=== PATIENT | female | born 1990 | race Caucasian/White ===

== ENCOUNTER → 2020-11-19 14:36 | Outpatient (BNVA) | payer OTHER, SELFPAY | PROVIDERS: PCP Chiropractor; Visit Provider Internal Medicine Cardiovascular Disease | DX: Z76.89 Persons encountering health services in other specified circumstances (principal) ==

== ENCOUNTER 2022-02-02 13:25 | Outpatient (REF) | payer OTHER, SELFPAY | END 2022-02-02 13:26 | disposition home or self-care (01) | LOC: HO.LAB 13:25 | PROVIDERS: PCP General Practice; Visit Provider Internal Medicine Cardiovascular Disease | DX: I47.1 Supraventricular tachycardia (principal); R00.0 Tachycardia, unspecified; R09.89 Other specified symptoms and signs involving the circulatory and respiratory systems | CPT/HCPCS: 36415; 93005 ==

== ENCOUNTER → 2022-06-12 07:22 | Outpatient (REF) | payer OTHER, SELFPAY ==
--- NOTE | 2022-06-12 07:25 | CA_ITS ---
Transthoracic Echocardiogram Patient (Last, First, Middle): Tammy Gleason, Gender: Female Date of : 1990 Age: 32 Procedure Date: 06/12/2022 Procedure Type: Transthoracic Echocardiogram Location: OP Height: 172.72 cm Weight: 65.77 kg BSA: 1.78 m2 Heart Rate: bpm BP: 115 / 70 mmHg Electrolysis Investigator: TO Referring MD: Esa De Leon MD Occupational Therapist Rehab Manager: Esa De Leon MD Symptoms: I49.1 - Atrial premature depolarization Study Quality: Good ECG Rhythm: Sinus Conclusions: - Normal study Findings Left Ventricle Normal left ventricular size, thickness, and systolic function. The visually estimated ejection fraction is between 65-70%. Diastolic function is normal for age. Atria Both atria are normal in size. There is no evidence of interatrial shunt. Aortic Valve Normal aortic valve structure and function. There is no aortic valve stenosis. There is no aortic valve regurgitation. Mitral Valve Normal mitral valve structure and function. There is no mitral valve regurgitation. There is no mitral valve stenosis. Pulmonic Valve The pulmonic valve is likely normal. Tricuspid Valve Normal tricuspid valve structure. There is trace tricuspid valve regurgitation. The right ventricular systolic pressure is 31 mmHg. Normal right atrial pressure. There is no evidence of pulmonary hypertension. Great Vessels All visible segments of the aorta are normal in size. The visualized portions of the pulmonary artery and branches are normal. Venous The inferior vena cava is normal in size and collapses greater than 50% with inspiration. Pericardium/Pleural There is no evidence of pericardial effusion. Prior Study Comparison No change compared to prior study dated: 05/04/2018. Measurements 2D Linear Measurements IVSd: 0.94 0.6-0.9/0.6-1.0 cm LVIDd: 4.42 3.9-5.3/4.2-5.9 cm LVIDd Index: 2.48 2.4-3.2/2.2-3.1 cm/m2 LVIDs: 2.80 2.0-3.6 cm LVPWd: 0.73 0.7-1.1 cm LA Diam: 3.00 2.7-3.8/3.0-4.0 cm LAIDs Index: 1.69 1.5-2.3 cm/m2 LV Mass: 145.68 67-162/88-224 g LV Mass Index: 81.84 43-95/49-115 g/m2 LVOT Diam: 2.00 3.0+(-)1.3 cm 2D Systolic Function EF 4C: 62.80 >55% EF 2C: 72.00 >55% EF BiP: 68.10 >55% Mitral Valve MV Pk E: 0.94 MV PK A: 0.64 MV Decel Time: 198.00 E/A: 1.50 E'Lateral: 13.60 E'Medial: 10.60 E/E' Med: 8.80 E/E' Lat: 6.90 PHT: 58.00 MVA PHT: 3.79 Decel Grant: 4.74 Aortic Valve AoV Pk Oral: 1.13 AoV Mn Oral: 0.84 AoV VTI: 0.26 AoV Pk Grad: 5.00 Aov Mn Grad: 3.00 MONISHA Cont.VTI: 2.36 LVOT LVOT Pk Oral: 0.87 LVOT Mn Oral: 0.61 LVOT VTI: 0.20 LVOT Pk Grad: 3.00 LVOT Mn Grad: 2.00 LVOT Diam: 2.00 LVOT Area: 3.14 Diastolic Function MV Pk E: 0.94 MV Pk A: 0.64 E/A: 1.50 E'Medial: 10.60 E/E' Med: 8.80 E' Laterial: 13.60 E/E' Lat: 6.90 Right Ventricle TAPSE (mm): 30.80 TVS' Oral: 15.70 Tricuspid Valve TR Pk Oral: 1.98 TR Pk Grad: 16.00 RA Press: 15.00 RVSP: 31.00 Great Vessels Aorta Sinus of Valsalva: 3.62 2.0-3.[address] Ridge: 3.05 1.7-3.4 cm Ao Asc: 3.30 2.1-3.4 cm Ao Arch: 2.50 Updated in Other Vendor System with Status of Final Esa De Leon MD electronically signed on 06/13/2022 3:54:50 PM with status of Final
== END ==
LOC: HO.CARD 07:22
PROVIDERS: Visit Provider Internal Medicine Cardiovascular Disease
DX: O99.419 Diseases of the circulatory system complicating pregnancy, unspecified trimester (principal); I49.1 Atrial premature depolarization; I47.1 Supraventricular tachycardia; R00.0 Tachycardia, unspecified
CPT/HCPCS: 93306

== ENCOUNTER → 2022-10-05 09:55 | Outpatient (BNVA) | payer OTHER, SELFPAY | PROVIDERS: PCP Nurse Practitioner Acute Care; Visit Provider Internal Medicine Cardiovascular Disease | DX: Z01.810 Encounter for preprocedural cardiovascular examination (principal); I47.1 Supraventricular tachycardia | CPT/HCPCS: 93005 ==

== ENCOUNTER → 2023-08-23 08:32 | Outpatient (REF) | payer OTHER, SELFPAY | LOC: HO.CARD 08:32 | PROVIDERS: Visit Provider Internal Medicine Cardiovascular Disease | DX: I49.1 Atrial premature depolarization (principal); I47.1 Supraventricular tachycardia | CPT/HCPCS: 93246 ==

== ENCOUNTER 2023-10-11 09:11 | Outpatient (AMB) | payer OTHER, SELFPAY ==
--- NOTE | 2023-10-11 09:41 | MHC.OFFVIS ---
Intake Vital Signs 10/11/23 09:42 10/11/23 09:54 10/11/23 09:56 Height 5 ft 7 in Weight 141 lb 1.533 oz BMI 22.1 BP 116/78 126/83 120/84 Blood Pressure Location Lt brachial Lt brachial Lt brachial Position Supine Sitting Standing Pulse 65 78 Intake Visit Reasons: 1 YEAR FOLLOW UP Intake Note: 1 year follow-up with ekg feeling good Upper And Bottom Lacer Hand Required: No Allergies Benadryl Allergy (Unknown, Uncoded 05/14/20 00:00) facial edema Medication List - Last Reconciled 10/11/23 by Esa De Leon MD levothyroxine 50 mcg PO DAILY HPI HPI Comments History of Present Illness Details Tammy comes for follow-up. Overall she has been doing well. Recently she had about of episode when she was having recurrent episodes of palpitations which has now subsided. Subsequent Holter monitor showed isolated PACs. Her blood pressures remained controlled. She exercise regularly and denies any symptoms exertional chest pain shortness of breath. No heart failure symptoms. No lightheadedness, syncope. Her dermatomyositis is under control. [facility] Medical History Dermatomyositis Inappropriate sinus tachycardia PAC (premature atrial contraction) Paroxysmal atrial tachycardia Surgical History Hx of tonsillectomy Family History Father HTN (hypertension) Mother No problems noted. Review of Systems Const Denies chills, Denies fatigue, Denies fever(s), Denies frequent falls, Denies weakness, Denies weight gain and Denies weight loss ENT Denies dizziness Card Denies chest pain, Denies leg edema, Denies lightheadedness, Denies palpitations, Denies dyspnea, Denies dyspnea on exertion, Denies orthopnea and Denies other (loss of consciousness) Resp Denies cough, Denies dyspnea and Denies dyspnea on exertion GI Denies hematochezia and Denies change in stool character Musc Denies abnormal gait, Denies muscle weakness, Denies numbness, Denies radiating pain into limb and Denies tingling Neuro Denies abnormal gait, Denies dizziness, Denies frequent falls, Denies numbness, Denies tingling and Denies weakness Endo Denies fatigue and Denies palpitations Physical Exam Vital Signs: Last Vital Signs Pulse 78 10/11/23 09:56 BP 120/84 10/11/23 09:56 BMI result Body Mass Index 22.1 Const General: cooperative, comfortable, well developed, alert and awake Nutritional Appearance: thin Orientation/consciousness: patient oriented x3 Limitations: no limitations HEENT Head: Yes normocephalic and Yes atraumatic Eyes General: appearance normal, both eyes and all related structures Neck Neck: Yes trachea midline, Yes supple and Yes no JVD Chest Chest palpation & inspection: normal inspection of the chest Resp Effort & Inspection: normal respiratory effort Auscultation: clear to auscultation bilaterally Cardio Jugular venous distension: no JVD Palpation: normal PMI Rate: regular rate Rhythm: regular rhythm Heart sounds: S1 normal heart sound present and S2 normal heart sound present GI Inspection: Yes other ( abdomen) Neuro General: patient oriented x3 and no focal motor deficits Extrem General: Yes no clubbing, cyanosis or edema Psych Appearance: grossly normal Office Procedures EKG Details: EKG shows normal sinus rhythm normal EKG [id number], Complete Assessment & Plan Assessment & Plan (1) Paroxysmal atrial tachycardia: Code(s): I47.1 - Supraventricular tachycardia Plan: Patient recent small cluster of symptoms suggestive of PAT could be isolated PACs. Although these have not subsided. She is currently not on medications. Benign nature of these arrhythmias were discussed. Her blood pressures been optimize. She does not require any pharmacotherapy from this perspective. This was discussed with her. She is encouraged to continue to participate in regular physical activity. Avoidance of stimulants as well as stress mitigation strategies to be pursued. Will follow up in the clinic in 1 year's time, sooner p.r.n.. Thank you for allowing me to partake in her care Coding Level of Care Code Est Pt Level 3 (05357) Diagnoses Paroxysmal atrial tachycardia I47.1 CPT Codes EKG - CPT: [id number], Complete ([id number])
[2023-10-11 09:42] VITALS: BP 116/78; PULSE 65; BMI 22.1
[2023-10-11 09:54] VITALS: BP 126/83
[2023-10-11 09:56] VITALS: BP 120/84; PULSE 78
== END 2023-10-11 10:14 | disposition home or self-care (01) ==
PROVIDERS: PCP Nurse Practitioner Acute Care; Visit Provider Internal Medicine Cardiovascular Disease
DX: I47.1 Supraventricular tachycardia (principal)
CPT/HCPCS: 93010; 99213

== ENCOUNTER → 2023-10-11 09:11 | Outpatient (BNVA) | payer OTHER, SELFPAY | PROVIDERS: Visit Provider Internal Medicine Cardiovascular Disease | DX: I47.11 Inappropriate sinus tachycardia, so stated (principal); I49.1 Atrial premature depolarization; I47.19 Other supraventricular tachycardia; M33.13 Other dermatomyositis without myopathy | CPT/HCPCS: 93005 ==

== ENCOUNTER 2024-10-10 09:26 | Outpatient (AMB) | payer OTHER, SELFPAY ==
--- NOTE | 2024-10-10 09:41 | A.OFFVIS_ITS ---
Vital Signs 10/10/24 09:42 10/10/24 09:51 10/10/24 09:52 Height 5 ft 7 in Weight 183 lb 13.848 oz BMI 28.8 BP 116/76 113/75 121/78 Blood Pressure Location Lt brachial Lt brachial Lt brachial Position Sitting Supine Standing Pulse 84 84 87 Pulse Source Monitor Intake Visit Reasons: 1 yr Intake Note: 1 yr f/up Press And Blow Machine Tender Required: No Accompanied by: Self / Same As Patient Allergies Benadryl Allergy (Unknown, Uncoded 05/14/20 00:00) facial edema Medication List - Last Reconciled 10/10/24 by Esa De Leon MD immune globul G-gly-IgA avg 46 5 gram/50 mL (10 %) (Gamunex-C) IV levothyroxine 50 mcg PO DAILY HPI Comments Details: Tammy comes for follow-up. She is currently 8 months with her 2nd child. She is doing well from that perspective. She has not had any cardiac symptoms. Denies any prolonged palpitations. Denies any lightheadedness, syncope. Blood pressures remained stable. Denies any shortness of breath on her general any cardiac symptoms. [facility] Medical History Dermatomyositis Inappropriate sinus tachycardia PAC (premature atrial contraction) Paroxysmal atrial tachycardia Surgical History Hx of tonsillectomy Family History Father HTN (hypertension) Mother No problems noted. Review of Systems Const Denies chills, Denies fatigue, Denies fever(s), Denies frequent falls, Denies weakness, Denies weight gain and Denies weight loss ENT Denies dizziness Card Denies chest pain, Denies leg edema, Denies lightheadedness, Denies palpitations, Denies dyspnea and Denies dyspnea on exertion Resp Denies cough, Denies dyspnea and Denies dyspnea on exertion GI Denies hematochezia Musc Denies abnormal gait, Denies muscle weakness, Denies numbness, Denies radiating pain into limb and Denies tingling Neuro Denies abnormal gait, Denies dizziness, Denies frequent falls, Denies numbness, Denies tingling and Denies weakness Endo Denies fatigue and Denies palpitations Physical Exam Vital Signs: Last Vital Signs Pulse 87 10/10/24 09:52 BP 121/78 10/10/24 09:52 BMI result Body Mass Index 28.8 Const General: cooperative, comfortable, well developed, alert and awake Nutritional Appearance: thin Orientation/consciousness: patient oriented x3 Limitations: no limitations HEENT Head: Yes normocephalic and Yes atraumatic Eyes General: appearance normal, both eyes and all related structures Neck Neck: Yes trachea midline, Yes supple and Yes no JVD Chest Chest palpation & inspection: normal inspection of the chest Resp Effort & Inspection: normal respiratory effort Auscultation: clear to auscultation bilaterally Cardio Jugular venous distension: no JVD Palpation: normal PMI Rate: regular rate Rhythm: regular rhythm Heart sounds: S1 normal heart sound present and S2 normal heart sound present GI Inspection: Yes other ( abdomen) Neuro General: patient oriented x3 and no focal motor deficits Extrem General: Yes no clubbing, cyanosis or edema Psych Appearance: grossly normal Office Procedures EKG Details: EKG shows normal sinus rhythm with right atrial enlargement otherwise normal EKG [id number], Complete Assessment & Plan Assessment & Plan (1) Paroxysmal atrial tachycardia: Code(s): I47.1 - Supraventricular tachycardia Category: Medical Plan: Patient prior history of paroxysmal atrial tachycardia which has remained sup pressed. No symptoms currently. She was also does not have any symptoms related to PAC. No pharmacotherapy recommended. Continue stress mitigation strategies. Avoidance of stimulants was discussed. Will continue to follow clinically. (2) Inappropriate sinus tachycardia: Code(s): R00.0 - Tachycardia, unspecified Category: Medical Plan: Dysautonomia with prior labile blood pressure as well as inappropriate sinus tachycardia. This has improved and currently stable especially while she is with volume expansion. Advised to maintain adequate hydration. Discussed about stress mitigation strategies. She is at risk for developing gestational hypertension advised to monitor this closely. Low-salt diet was recommended. Orthostatic precautions were discussed. Will follow up in the clinic in 1 year's time, sooner p.r.n.. Thank you for allowing me to partake in his care Coding Level of Care Code Est Pt Level 4 (60341) Complex EM visit Add On G2211 Diagnoses Paroxysmal atrial tachycardia I47.1 Inappropriate sinus tachycardia R00.0 CPT Codes EKG - CPT: 63570-[id number], Complete ([id number])
[2024-10-10 09:42] VITALS: BP 116/76; PULSE 84; BMI 28.8
[2024-10-10 09:51] VITALS: BP 113/75; PULSE 84
[2024-10-10 09:52] VITALS: BP 121/78; PULSE 87
== END 2024-10-10 10:00 | disposition home or self-care (01) ==
PROVIDERS: PCP Nurse Practitioner Acute Care; Visit Provider Internal Medicine Cardiovascular Disease
DX: I47.10 Supraventricular tachycardia, unspecified (principal)
CPT/HCPCS: 93010; 99214

== ENCOUNTER → 2024-10-10 09:26 | Outpatient (BNVA) | payer OTHER, SELFPAY | PROVIDERS: PCP Nurse Practitioner Acute Care; Visit Provider Internal Medicine Cardiovascular Disease | DX: O99.891 Other specified diseases and conditions complicating pregnancy (principal); I47.10 Supraventricular tachycardia, unspecified; Z3A.00 Weeks of gestation of pregnancy not specified | CPT/HCPCS: 93005 ==

== ENCOUNTER 2025-10-16 10:54 | Outpatient (AMB) | payer OTHER, SELFPAY ==
[2025-10-16 10:58] VITALS: BP 122/69; PULSE 76; BMI 22.1
--- NOTE | 2025-10-16 10:58 | MHC.OFFVIS ---
Vital Signs 10/16/25 10:58 10/16/25 11:12 10/16/25 11:13 Height 5 ft 7 in Weight 141 lb 1.533 oz BMI 22.1 BP 122/69 111/76 117/78 Blood Pressure Location Lt brachial Lt brachial Lt brachial Position Supine Sitting Standing Pulse 76 70 88 Intake Visit Reasons: 1 yr f/up Intake Note: 1 year follow-up ekg c/o some lightheadedness has been hard to hydrate Member Services Representative Required: No Allergies Benadryl Allergy (Unknown, Uncoded 05/14/20 00:00) facial edema Medication List - Last Reconciled 10/16/25 by Esa De Leon MD immune globul G-gly-IgA avg 46 5 gram/50 mL (10 %) (Gamunex-C) IV levothyroxine 50 mcg PO DAILY HPI Comments Details: Tammy comes for follow-up. She has been noticing some orthostatic tachycardia as well as exertional tachycardia although says that she has not been very taoism with her water and salt intake. She has not had any syncopal episodes. She denies any exertional chest pain or shortness of breath with good functionality. She does notice some recent symptoms suggestive of her dermatomyositis is flaring up. 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 [facility] Medical History Dermatomyositis Inappropriate sinus tachycardia PAC (premature atrial contraction) Paroxysmal atrial tachycardia Surgical History Hx of tonsillectomy Family History Father HTN (hypertension) Mother No problems noted. Review of Systems Const Denies chills, Denies fatigue, Denies fever(s), Denies frequent falls, Denies weakness, Denies weight gain and Denies weight loss ENT Denies dizziness Card Denies chest pain, Denies syncope, Denies leg edema, Reports lightheadedness, Reports palpitations (With exercise), Denies dyspnea, Denies dyspnea on exertion, Denies orthopnea and Denies other (loss of consciousness) Resp Denies cough, Denies dyspnea and Denies dyspnea on exertion GI Denies hematochezia and Denies change in stool character Musc Denies abnormal gait, Reports muscle weakness (Left shoulder), Denies numbness, Denies radiating pain into limb and Denies tingling Skin/Breast Reports other (Rash) Neuro Denies abnormal gait, Denies dizziness, Denies syncope, Denies frequent falls, Denies numbness, Denies tingling and Denies weakness Endo Denies fatigue and Reports palpitations (With exercise) Physical Exam Vital Signs: Last Vital Signs Pulse 88 10/16/25 11:13 BP 117/78 10/16/25 11:13 BMI result Body Mass Index 22.1 Office Procedures EKG Details: EKG shows normal sinus rhythm with normal EKGs [id number], Complete Assessment & Plan Assessment & Plan (1) Inappropriate sinus tachycardia: Code(s): R00.0 - Tachycardia, unspecified Category: Medical Plan: Patient with some symptoms with orthostatic changes and/or fast heart rate usually suggestive of recurrence of her dysautonomia probably related to decreased water and salt intake. Importance of this was discussed again. Orthostatic precautions were discussed. She understands management very well and knows that this will lead to improvement in his symptoms. I would avoid any pharmacotherapy at current time given that she is planning to get . Her blood pressure appears stable at this point time. Advised to continue monitor intermittently. The no arrhythmias suggestive of either PACs or PAT. Avoid pharmacotherapy. Continue to optimize thyroid function. (2) Preoperative cardiovascular examination: Code(s): Z01.810 - Encounter for preprocedural cardiovascular examination Plan: Preoperative cardiovascular risk stratification for bilateral prophylactic mastectomy. Patient is low risk for perioperative cardiovascular morbidity mortality given her age and no concerning symptoms with good functionality. This was discussed with her. Her baseline EKGs also within normal limits. Will follow up in the clinic in 1 year's time, sooner PRN. Thank you for allowing me to partake in her care Coding Level of Care Code Est Pt Level 4 (34342) Complex EM visit Add On G2211 Diagnoses Inappropriate sinus tachycardia R00.0 Preoperative cardiovascular examination Z01.810 CPT Codes EKG - CPT: [id number], Complete ([id number])
[2025-10-16 11:12] VITALS: BP 111/76; PULSE 70
[2025-10-16 11:13] VITALS: BP 117/78; PULSE 88
== END 2025-10-16 11:25 | disposition home or self-care (01) ==
LOC: HO.HCS 10:54
PROVIDERS: PCP Nurse Practitioner Acute Care; Visit Provider Internal Medicine Cardiovascular Disease
DX: R00.0 Tachycardia, unspecified (principal); Z01.810 Encounter for preprocedural cardiovascular examination
CPT/HCPCS: 93010; 99214

== ENCOUNTER → 2025-10-16 10:54 | Outpatient (BNVA) | payer OTHER, SELFPAY | PROVIDERS: PCP Nurse Practitioner Acute Care; Visit Provider Internal Medicine Cardiovascular Disease | DX: Z01.810 Encounter for preprocedural cardiovascular examination (principal); R00.0 Tachycardia, unspecified | CPT/HCPCS: 93005 ==